=== PATIENT | male | born 1950 | race Caucasian/White ===

== ENCOUNTER 2021-01-10 15:22 | Emergency (ER) | payer MEDICARE ==
[~2021-01-10] VITALS: Ht 177.8 cm; Wt 95.3 kg
--- NOTE | ~2021-01-10 | EMS ---
[place] [address] EMS Patient Care Report Name: SHANELLE ROSADO JR [id number] Admission: 01/10/21 Attend Phys: Discharge: 01/10/21 Date of : 46 Report #: [id number] THIS REPORT FOR: //name// Report Transmitted: 01/10/2021 19:15 EMS Care Summary [employer] [facility] Incident [id number] @ 01/10/2021 14:37 Incident Location [address] [place] [address] Patient SHANELLE TORRES Male, 70 Years 1950 Patient Address [address] [place] [address] Patient History Kidney/Renal Failure,Coronary Artery Disease (CAD), Patient Allergies No known allergies, Chief Complaint Cardiac Arrest Disposition Transported [place] Dispatch Reason Falls Transported To [facility] Narrative 70 y/o male pt found laying supine on floor at [facility] upon EMS arrival. Pt was extremely discolored from the shoulders up, and appeared to be agonal breathing. There was also a large amount of vomit coming from the patient's mouth. A pulse was checked and he was discovered to be pulseless. High quality CPR was started and an NPA was placed in the patient's nose to help establish an airway. Pt's airway was suctioned thoroughly and a NRB was [address] [place] [address] EMS Patient Care Report Name: LIANG ROSADOAdalberot Quarles JR Room: [facility]#: [id number] Admission: 01/10/21 Attend Phys: Discharge: 01/10/21 Date of : 46 Report #: [id number] placed on the patient at 15 LPM. Pt was then placed on Reza device to give high quality continuous compressions. Pt was placed on youth nutritional monitor and fast patches were applied. Monitor showed Asystole initially. Pt was moved to cot and placed in ambulance. Once in ambulance, an IO was established and patient was given 1st round of 1mg Epinephrine. During transport, pt was continuously suctioned due to continuous vomit coming from airway. It was extremely difficult to visualize the patient's airway due to secretions and vomit, so an iGel was placed as an airway. Pt was continuously bagged every 6-8 seconds with BVM connected to 15LPM of O2. Chest rise was visualized and lung sounds auscultated. Colormetric was also used to confirm tube placement. 2 more rounds of 1mg Epinephrine were given during transport. Pulse/rhythm checks performed every 2 min revealed continuous Asystole and no changes. Blood glucose was 103. ACLS protocols followed until arrival at [facility], where care was transferred to RN and physician for further care. Resuscitation efforts were discontinued at ER. Initial Vitals @14:42GCS: 3,Glucose: 103, Assessments @14:43MENTAL:Unresponsive,SKIN:Cyanotic,HEENT:Neck/Airway: Compromised,Eyes: Left: Dilated,Eyes: Right: Non-Reactive,Eyes: Right Pupil: 5-mm,Eyes: Right: Dilated,Eyes: Left: Non-Reactive,Eyes: Left Pupil: 5-mm,LUNG SOUNDS:General: No Abnormalities,Left Upper: No Abnormalities,Right Upper: No Abnormalities,Right Lower: No Abnormalities,ABDOMEN:General: No Abnormalities,Left Upper: No Abnormalities,Right Upper: No Abnormalities,Right Lower: No Abnormalities,PELVIS//GI:No Abnormalities,EXTREMITIES:Left Arm: No Abnormalities,Right Arm: No Abnormalities,Left Leg: No Abnormalities,Right Leg: No Abnormalities,PULSE:Carotid: Absent,NEURO: Impression Cardiac arrest Procedures @14:42Response: UnchangedSucceeded@14:48Response: UnchangedSucceeded@14:44Oxygen FlowRate: 15 Device: Non Re-breather Mask (NRB) Response: UnchangedSucceeded@14:43NPA Response: UnchangedSucceeded@14:42ALS AssessmentResponse: UnchangedSucceeded@14:50Normal Saline (.9% NaCl) 300cc (IO (Adult)) Site: HX-Hoxkmfx-XfkhmPqterlke: UnchangedSucceeded@15:03Epinephrine 1:10 - 1 Milligrams (mg) - Intravenous (IV)Response: Unchanged@15:07iGEL Complications: None,Response: UnchangedSucceeded@15:10Epinephrine 1:10 - 1 Milligrams (mg) - Intravenous (IV)Response: Unchanged@14:55Epinephrine 1:10 - 1 Milligrams (mg) - Intravenous (IV)Response: Unchanged@15:09Suction Response: UnchangedSucceeded@14:45Suction Response: [place] [address] EMS Patient Care Report Name: SHANELLE ROSADO JR Room: [facility]#: [id number] Admission: 01/10/21 Attend Phys: Discharge: 01/10/21 Date of : 46 Report #: [id number] 14:37,Call Received 14:37,Dispatched 14:39,En Route 14:41,Initial Responder On Scene 14:41,On Scene 14:42,At Patient 14:42,BP: / M,PULSE: ,RR: R,SPO2: Ox,ETCO2: ,B,PAIN: ,GCS: 3, 14:42,Response: UnchangedSucceeded, 14:42,ALS Assessment,Response: UnchangedSucceeded, 14:43,NPA Response: UnchangedSucceeded, 14:44,Oxygen FlowRate: 15 Device: Non Re-breather Mask (NRB) Response: UnchangedSucceeded, 14:45,Suction Response: UnchangedSucceeded, 14:48,Response: UnchangedSucceeded, 14:50,Normal Saline (.9% NaCl) 300cc IO (Adult) Site: TZ-Ldpgnee-Fvpce,Response: UnchangedSucceeded, 14:55,Epinephrine 1:10 - 1 Milligrams (mg) - Intravenous (IV),Response: Unchanged 14:59,Depart Scene 15:03,Epinephrine 1:10 - 1 Milligrams (mg) - Intravenous (IV),Response: Unchanged 15:07,iGEL Complications: None,,Response: UnchangedSucceeded, 15:09,Suction Response: UnchangedSucceeded, 15:10,Epinephrine 1:10 - 1 Milligrams (mg) - Intravenous (IV),Response: Unchanged 15:16,At Destination 15:18,Transfer Patient 16:14,Call Closed 16:14,In [facility] Disclaimer v1.1 Copyright 2020 [employer] This EMS Care Summary contains data elements from the applicable legal record (which may be displayed differently). It is designed to provide pertinent information for the following purposes: continuity of care, clinical quality, and state data reporting. The complete legal record is available to ED staff and administrators of the receiving hospital in ES's Patient Tracker. All data is provided "as is."
[2021-01-10 18:16] VITALS: BP 00/00
== END 2021-01-10 18:19 ==
LOC: M.ERS 15:22
DX: I46.9 Cardiac arrest, cause unspecified (principal); Z20.822 Contact with and (suspected) exposure to COVID-19; I25.10 Atherosclerotic heart disease of native coronary artery without angina pectoris